=== PATIENT | female | born 2000 | race African-American/Black ===

== ENCOUNTER 2021-01-18 15:50 | Outpatient (CLI) | payer OTHER, BC, SELFPAY ==
[2021-01-18 17:05] LABS: HIV 1/2 Ab P24 Ag Result Negative (Negative)
[2021-01-18 19:07] LABS: Hepatitis B Surface Antigen Negative (Negative)
[2021-01-18 19:24] LABS: Hepatitis C Virus Antibody Negative (Negative)
[2021-01-19 11:03] LABS: Rapid Plasma Reagin Non-Reactive (NonReactive)
== END 2021-01-18 15:51 | disposition home or self-care (01) ==
LOC: ANHLAB 15:52
PROVIDERS: PCP Pediatrics; Visit Provider Obstetrics & Gynecology
DX: Z11.3 Encounter for screening for infections with a predominantly sexual mode of transmission (principal); Z11.4 Encounter for screening for human immunodeficiency virus [HIV]
CPT/HCPCS: 36415; 86592; 86703; 86803; 87340; G0432

== ENCOUNTER 2021-04-27 10:24 | Emergency (ER) | payer OTHER, BC, SELFPAY ==
[2021-04-27 10:32] VITALS: BP 149/73; PULSE 75; RESP 16; TEMP 36.8; O2SAT 100
--- NOTE | 2021-04-27 11:05 | ED.FEMALEGU ---
HPI - Female Genitourinary General Chief complaint: Urogenital-Female Stated complaint: Poss UTI Time Seen by Provider: 04/27/21 10:52 Source: patient and RN notes reviewed Mode of arrival: ambulatory Limitations: no limitations History of Present Illness HPI Narrative: Patient presents today complaining of some occasional bloody vaginal discharge. Approximately 1 week ago, patient tested positive for chlamydia and will was placed on a 1 week course of doxycycline. She comes in today because she vomited up one of the pills, but was able to complete the rest of the course. When she was diagnosed she was experiencing some spotting and pelvic pain, and states the spotting persists and believes she needs to be on more antibiotics. She called her UNPAID INTERN's office and they instructed her to come to urgent care. She does have a follow-up appointment at the end of the month to get rechecked for the chlamydia. In mid March, patient had an IUD placed. States she was under the impression that once she had the IUD that she would never have a period or abdominal cramping/pelvic pain. MD elicited complaint: vaginal bleeding and vaginal discharge Related Data Home Medications Medication Instructions Recorded Confirmed levonorgestrel 14 mcg/24 hrs (3 1 device INTRAUTERINE ONCE 04/05/21 04/19/21 yrs) 13.5 mg intrauterine device Allergies Allergy/AdvReac Type Severity Reaction Status Date / Time No Known Allergies Allergy Verified 04/05/21 14:46 Review of Systems Review of Systems: CONSTITUTIONAL: Denies body aches, fever, chills, or sweats. EYES: Denies visual changes, redness, or discharge. ENT: Denies rhinorrhea, congestion, sore throat, or otalgia. CARDIOVASCULAR: Denies chest pain, palpitations, or edema. RESPIRATORY: Denies cough or dyspnea. GASTROINTESTINAL: Denies abdominal pain, nausea, vomiting, or diarrhea. GENITOURINARY: Denies dysuria or hematuria. + Vaginal discharge SKIN: Denies rash, itching, or wounds. MUSCULOSKELETAL: Denies back pain, joint pain, or myalgia. NEUROLOGIC: Denies headache, numbness, tingling, or weakness. PSYCH: Denies depression or anxiety. [facility] Social History Social History Smoking status: Never smoker Alcohol intake: never Substance use: never Comments At time of signature, I have reviewed and agree with nursing past medical, surgical, social and family history unless otherwise noted. Please see nursing chart for further information. There is no relevant family history pertinent to the presenting complaint Exam Narrative: GENERAL: Well-appearing, well-nourished, and in no acute distress. HEAD: Normocephalic, atraumatic. EYES: EOMI. No redness or drainage. Conjunctivae normal. ENT: Mucous membranes pink and moist. NECK: Normal AROM. CHEST: No respiratory distress. EXTREMITIES: Normal range of motion. No edema. SKIN: Warm, dry, no rash. Capillary refill normal. Normal skin turgor. NEURO: No focal deficits. Alert and oriented x3. Gait steady. PSYCH: Normal affect. No signs of depression or anxiety. Course Course Emergency Course: Long discussion with patient about the fact that she only finished a course of doxycycline a few days ago and not retesting her for chlamydia now may not be accurate. We also discussed that since she just recently had the IUD placed, the bloody vaginal discharge she is experiencing may likely be due to that, or her normal period. We discussed that pelvic pain she may be experiencing intermittently could be due to the new IUD as well, not chlamydia. I did offer to send off the urine sample for chlamydia, but after discussion, patient has decided to wait until her follow-up with her [employer]PA[employer] INTERN. Level of Care: Express Care Visit Vital Signs Vital signs: Vital Signs Temperature 98.2 F 04/27/21 10:32 Pulse Rate 75 04/27/21 10:32 Respiratory Rate 16 04/27/21 10:32 Blood Pressure 149/7
== END 2021-04-27 11:13 | disposition home or self-care (01) ==
PROVIDERS: Emergency Provider Nurse Practitioner; PCP Obstetrics & Gynecology
DX: N89.8 Other specified noninflammatory disorders of vagina (principal)
CPT/HCPCS: 99212; G0463

== ENCOUNTER 2021-05-18 13:41 | Emergency (ER) | payer OTHER, BC, SELFPAY ==
--- NOTE | 2021-05-18 14:01 | ED.FEMALEGU ---
HPI - Female Genitourinary General Chief complaint: Urogenital-Female Stated complaint: UTI symptoms Source: patient Mode of arrival: ambulatory Limitations: no limitations History of Present Illness HPI Narrative: 21-year-old female presented for reevaluation after treatment for diagnosed chlamydia in March. She states she took the antibiotics as directed but wanted to be sure everything was clear. She currently denies any abdominal pain, vaginal discharge, dysuria, dyspareunia, hematuria, fever or chills. Partner was treated at that time. She has an IUD in place and is following with her BEEF PUSHER. Related Data Home Medications Medication Instructions Recorded Confirmed levonorgestrel 14 mcg/24 hrs (3 1 device INTRAUTERINE ONCE 04/05/21 05/18/21 yrs) 13.5 mg intrauterine device Allergies Allergy/AdvReac Type Severity Reaction Status Date / Time No Known Allergies Allergy Verified 05/18/21 13:48 Review of Systems Review of Systems: CONSTITUTIONAL: Denies body aches, fever, chills, or sweats. CARDIOVASCULAR: Denies chest pain, palpitations, or edema. RESPIRATORY: Denies cough or dyspnea. GASTROINTESTINAL: Denies abdominal pain, nausea, vomiting, or diarrhea. GENITOURINARY: Denies dysuria, frequency, urgency, hematuria, dyspareunia, discharge, flank pain SKIN: Denies rash, itching, or wounds. MUSCULOSKELETAL: Denies back pain or myalgia. [facility] Social History Social History Smoking status: Never smoker Alcohol intake: never Substance use: never Comments At time of signature, I have reviewed and agree with nursing past medical, surgical, social and family history unless otherwise noted. Please see nursing chart for further information. There is no relevant family history pertinent to the presenting complaint Exam Narrative: GENERAL: Well-appearing and in no acute distress. HEAD: Normocephalic EYES: EOMI. No redness or drainage. ENT: Mucous membranes pink and moist. NECK: Normal AROM. Supple. CHEST: No respiratory distress. Clear to auscultation. HEART: Regular rate and rhythm. ABDOMEN: Soft, nontender, nondistended, normal active bowel sounds. No CVA tenderness MUSCULOSKELETAL: No bony tenderness. SKIN: Warm, dry, no rash. NEURO: No focal deficits. Alert and oriented x3. Gait steady. PSYCH: Normal affect. No signs of depression or anxiety. Course Course Emergency Course: We discussed std and risk for reinfection. Pt understands and agrees to treatment plan. Anticipatory guidance given. Patient agrees to follow-up as directed and is aware of reasons to seek care at the emergency department. Portions of this record may have been created with voice recognition software Level of Care: Express Care Visit Vital Signs Vital signs: Reviewed MDM - Female Genitourinary Differential Diagnosis Differential diagnosis: Likely urinary tract infection, bacterial vaginosis and other Discharge Plan Discharge Clinical Impression: Encounter for assessment of STD exposure Patient Disposition: Home, Self-Care Condition: Stable Instructions: Antibiotic Form, Sexually Transmitted Diseases (ED), Safe Sex Practices (ED) Additional Instructions: Your urine sample has been sent off to test for gonorrhea, chlamydia, and trichomonas infections. You will be called if any of your tests come back positive. These tests can take up to 5-7 days to come back. Remember to practice safe sex. Watch for return of symptoms. Return with any concerns If your tests come back negative and you are still experiencing symptoms, please follow-up with your PCP or OBGYN for further evaluation and treatment. If your symptoms worsen to include fever, abdominal pain, or back pain, please go to the hospital immediately. Prescriptions: No Action Selene 14 mcg/24 hrs (3 yrs) 13.5 mg intrauterine device 1 device intrauterine ONCE RF: 0 Follow-up/Referral
[2021-05-18 14:04] VITALS: BP 123/70; PULSE 83; RESP 16; TEMP 36.1; O2SAT 100
== END 2021-05-18 14:15 | disposition home or self-care (01) ==
PROVIDERS: Emergency Provider Nurse Practitioner Family; PCP Obstetrics & Gynecology
DX: Z11.3 Encounter for screening for infections with a predominantly sexual mode of transmission (principal)
CPT/HCPCS: 87491; 87591; 87661; 99214; G0463

== ENCOUNTER 2023-02-28 16:26 | Emergency (ER) | payer OTHER, SELFPAY ==
--- NOTE | 2023-02-28 16:35 | ED.EAR ---
HPI - Ear Problem General Chief complaint: Ear Stated complaint: EARACHE Source: patient Mode of arrival: ambulatory Limitations: no limitations History of Present Illness HPI Narrative: 23-year-old female presented for complaint of left ear pain for 2 days. She states it feels swollen and hearing is muffled. She denies tinnitus, dizziness, ear drainage, nausea vomiting or recent upper respiratory symptoms. Patient used hydrogen peroxide into the ear about 3 hours prior to arrival. Patient routinely uses a Pj pin to help remove ear wax. MD Complaint: ear pain Related Data Home Medications Medication Instructions Recorded Confirmed levonorgestrel 14 mcg/24 hrs (3 1 device intrauterine ONCE 04/05/21 02/28/23 yrs) 13.5 mg intrauterine device (Selene) Allergies Allergy/AdvReac Type Severity Reaction Status Date / Time No Known Allergies Allergy Verified 02/28/23 16:33 Review of Systems Review of Systems: CONSTITUTIONAL: Denies malaise, chills, or fever. EYES: Denies visual changes, redness, or discharge. ENT: Denies rhinorrhea, congestion, sinus pain, and sore throat. Reports ear pain CARDIOVASCULAR: Denies chest pain, palpitations, or edema. RESPIRATORY: Denies cough or dyspnea. GASTROINTESTINAL: Denies abdominal pain, nausea, vomiting, diarrhea SKIN: Denies rash or itching. MUSCULOSKELETAL: Denies myalgia. NEUROLOGIC: Denies headache. All systems reviewed & are unremarkable except as noted in HPI and below PMFSH Past Medical History Medical History (Updated 02/28/23 @ 16:46 by Liss Carroll APRN) No pertinent past medical history Social History Social History Smoking status: Never smoker Alcohol intake: never Substance use: never Comments At time of signature, agree with nursing past medical, surgical, social and family history. There is no relevant family history pertinent to the presenting complaint Exam Narrative: GENERAL: Well-appearing, well-nourished, and in no acute distress. EYES: PERRLA, conjunctivae clear ENT: Nares clear. Mucous membranes moist. TM pearly arreola with dull light reflex bilaterally; Left canal erythematous and swollen, not occluded; visualized portion of TM appears normal. mild left tragal tenderness. Oropharynx not erythematous without lesions. Tonsils not enlarged and without exudate, no drooling, no hoarseness, no trismus, uvula midline. NECK: Supple. No lymphadenopathy CHEST: Clear to auscultation, breath sounds equal. HEART: Regular rate and rhythm. No murmur heard. SKIN: Warm, dry, no rash. NEURO: Alert and oriented x3. Course Course Emergency Course: Patient is aware of diagnosis, understands and agrees to treatment plan. Anticipatory guidance given. Patient agrees to follow-up as directed and is aware of reasons to seek care at the emergency department. Portions of this record may have been created with voice recognition software Level of Care: Express Care Visit Vital Signs Vital signs: Reviewed Medical Decision Making MDM Narrative Medical decision making narrative: All exam findings consistent with otitis externa advised supportive measures and signs/symptoms to go to the ER. Patient is appropriate for outpatient treatment and follow-up. Differential Diagnosis Differential Diagnosis: Coronavirus, strep pharyngitis, allergic rhinitis, upper respiratory tract infection, sinusitis, rhinosinusitis, nasopharyngitis, viral pharyngitis, otitis media, otitis externa, eustachian tube dysfunction, foreign body, cerumen impaction. Discharge Plan Discharge Clinical Impression: Otitis externa Patient Disposition: Home, Self-Care Condition: Stable Instructions: Antibiotic Form, Swimmer's Ear (ED) Additional Instructions: Take antibiotic drops as directed. Tylenol or ibuprofen every 8 hours as needed to reduce fever, pain Avoid water into the ear. Do not put any objects i
[2023-02-28 16:36] VITALS: BP 128/82; PULSE 103; RESP 16; TEMP 36.6; O2SAT 100
== END 2023-02-28 16:46 | disposition home or self-care (01) ==
PROVIDERS: Emergency Provider Nurse Practitioner Family
DX: H60.92 Unspecified otitis externa, left ear (principal)
CPT/HCPCS: 99213; G0463

== ENCOUNTER 2023-08-27 00:31 | Emergency (ER) | payer OTHER, SELFPAY ==
[2023-08-27 01:06] VITALS: BP 132/87; PULSE 83; RESP 18; O2SAT 100
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
[2023-08-27] MEDS: CYCLOBENZAPRINE HCL 5 MG TABLET PO (02:32)
== END 2023-08-27 02:48 | disposition home or self-care (01) ==
LOC: ANHED 02:47
PROVIDERS: Emergency Provider Physician Assistant
DX: S16.1XXA Strain of muscle, fascia and tendon at neck level, initial encounter (principal); V43.52XA Car driver injured in collision with other type car in traffic accident, initial encounter
CPT/HCPCS: 99283; A9270